=== PATIENT | male | born 1955 | race Caucasian/White ===

== ENCOUNTER 2019-04-10 11:52 | Emergency (ER) | payer MEDICAID ==
--- NOTE | 2019-04-10 12:21 | ED Physician Chart ---
ED Chief Complaint/HPI - Patient Information Date Seen:: 04/10/19 Time Seen:: 12:05 Chief Complaint:: G-tube replaced History of Present Illness:: Patient sent here for replacement of G-tube which came out. A 20-gauge Ibarra catheter was placed in the G-tube stoma. Allergies:: Allergies Allergy/AdvReac Type Severity Reaction Status Date / Time levaquin Allergy Unknown Uncoded 08/22/12 21:29 Review:: Transfer documents Reviewed ED Review of Systems - Review of Systems General/Constitutional: No fever, No chills, No weight loss, No weakness, No diaphoresis, No edema, No loss of appetite Skin: No skin lesions, No rash, No bruising Head: No headache, No light-headedness Eyes: No loss of vision, No pain, No diplopia ENT: No earache, No nasal drainage, No sore throat, No tinnitus Neck: No neck pain, No swelling, No thyromegaly, No stiffness, No mass noted Cardio Vascular: No chest pain, No palpitations, No PND, No orthopnea, No edema Pulmonary: No SOB, No cough, No sputum, No wheezing GI: No nausea, No vomiting, No diarrhea, No pain, No melena, No hematochezia, No constipation, No hematemesis G/U: No dysuria, No frequency, No hematuria Musculoskeletal: No bone or joint pain, No back pain, No muscle pain Endocrine: No polyuria, No polydipsia Psychiatric: No prior psych history, No depression, No anxiety, No suicidal ideation Hematopoietic: No bruising, No lymphadenopathy Allergic/Immuno: No urticaria, No angioedema Neurological: No syncope, No focal symptoms, No weakness, No paresthesia, No headache, No seizure, No dizziness, No confusion, No vertigo ED Past Medical History - Past Medical History Past Medical History: Other (profound mental retardation; palsy; seizures; cholelithiasis; Essick quadriplegia) Family History: Other (unavailable) Social History: Care Facility Surgical History: Pacemaker Psychiatricy History: Other (severe mental retardation) Family Medical History - Family Member Mother History Unknown: Yes ED Physical Exam - Physical Examination General/Constitutional: Awake Other Gen/Cons comments:: Spastic quadriplegia; nonverbal Head: Atraumatic Eyes: Lids, conjuctiva normal, PERRL Skin: Nl inspection ENMT: External ears, nose nl Neck: No JVD Cardio Vascular: No murmur, gallop, rubs GI: No tenderness/rebounding/guarding Other Extremities comments:: Extremities contractured Other Neuro/Psych comments:: Not applicable ED Labs/Radiology/EKG Results - Lab Results Results: Laboratory Results WBC 7.3 Th/cmm (4.8-10.8) 04/10/19 12:39 RBC 4.96 Mil/cmm (4.30-5.70) 04/10/19 12:39 Hgb 15.5 gm/dL (12-16) 04/10/19 12:39 Hct 47.5 % (41.0-60) 04/10/19 12:39 MCV 95.8 fl (80-99) 04/10/19 12:39 MCH 31.2 pg (26.0-30.0) H 04/10/19 12:39 MCHC Differential 32.6 pg (28.0-36.0) 04/10/19 12:39 RDW 12.0 % (11.5-20.0) 04/10/19 12:39 Plt Count 230 Th/cmm (150-400) 04/10/19 12:39 MPV 9.7 fl 04/10/19 12:39 Neutrophils % 49.9 % (40.0-80.0) 04/10/19 12:39 Lymphocytes % 31.5 % (20.0-50.0) 04/10/19 12:39 Monocytes % 11.2 % (2.0-10.0) H 04/10/19 12:39 Eosinophils % 7.2 % (0.0-5.0) H 04/10/19 12:39 Basophils % 0.2 % (0.0-2.0) 04/10/19 12:39 Laboratory Results WBC 7.3 Th/cmm (4.8-10.8) 04/10/19 12:39 RBC 4.96 Mil/cmm (4.30-5.70) 04/10/19 12:39 Hgb 15.5 gm/dL (12-16) 04/10/19 12:39 Hct 47.5 % (41.0-60) 04/10/19 12:39 MCV 95.8 fl (80-99) 04/10/19 12:39 MCH 31.2 pg (26.0-30.0) H 04/10/19 12:39 MCHC Differential 32.6 pg (28.0-36.0) 04/10/19 12:39 RDW 12.0 % (11.5-20.0) 04/10/19 12:39 Plt Count 230 Th/cmm (150-400) 04/10/19 12:39 MPV 9.7 fl 04/10/19 12:39 Neutrophils % 49.9 % (40.0-80.0) 04/10/19 12:39 Lymphocytes % 31.5 % (20.0-50.0) 04/10/19 12:39 Monocytes % 11.2 % (2.0-10.0) H 04/10/19 12:39 Eosinophils % 7.2 % (0.0-5.0) H 04/10/19 12:39 Basophils % 0.2 % (0.0-2.0) 04/10/19 12:39 Sodium 141 mEq/L (136-145) 04/10/19 12:39 Potassium 3.9 mEq/L (3.5-5.1) 04/10/19 12:39 Chloride 105 mEq/L (98-107) 04/10/19 12:39 Carbon Dioxide 27.9 mEq/L (21.0-31.0) 04/10/19 12:39 Anion Gap 12.0 (7.0-16.0) 04/10/19 12:39 BUN 19 mg/dL (7-25) 04/10/19 12:39 Creatinine 0.6 mg/dL (0.7-1.3) L 04/10/19 12:39 Est GFR ( Amer) > 60.0 ml/min (>90) 04/10/19 12:39 Est GFR (Non-Af Amer) > 60.0 ml/min 04/10/19 12:39 BUN/Creatinine Ratio 31.7 04/10/19 12:39 Glucose 91 mg/dL (70-105) 04/10/19 12:39 Calcium 9.9 mg/dL (8.6-10.3) 04/10/19 12:39 - Radiology Results Results: KUB after Gastrografin injection showed G-tube to be in GI tract. ED Assessment - Assessment General Assessment: The RN contacted the extended care facility where the patient resides and the alternate physician to Dr. Ivan Akhtar (who is not on staff) is Dr. Sheth. I spoke to Dr. Sheth and he agreed if basic labs are normal patient may return to his extended care facility. ED Septic Shock - . Is Septic Shock (SBP<90, OR Lactate>4 mmol\L) present?: No ED Reassessment (Disposition) - Reassessment Reassessment Condition:: Improved - Diagnosis Diagnosis:: G-tube replacement; spastic quadriplegia; severe mental retardation - Aftercare/Follow up Instructions Aftercare/Follow-Up Instructions:: Refer to Discharge Instructions - Patient Disposition Discharge/Transfer:: [facility] Condition at Disposition:: Stable, Improved
[2019-04-10] MEDS ORDERED: Diatrizoate Meglumine/Diatri 30 mL Sol ONE (12:25)
--- NOTE | 2019-04-10 12:59 | Diagnostic Imaging Report ---
Upper GI with Gastrografin HISTORY: G-tube confirmation COMPARISON: None FINDINGS: Industrial Chemist view demonstrates significant stool throughout the colon with massive distal fecal impaction. Gas-filled loops of bowel are noted. Multilevel spinal fixation hardware is noted. There is severe scoliosis. The second image demonstrates contrast opacification of the stomach and small bowel loops. IMPRESSION: Intraluminal confirmation of patient's percutaneous gastric feeding tube. Significant amount of stool with significant distal fecal impaction noted. This is likely due to severe constipation and ileus. Clinical correlation and follow-up is needed. Severe spinal scoliosis with postsurgical changes.
[2019-04-10 13:05] LABS: % BASOPHILS 0.2 % (0.0-2.0); % EOSINOPHILS 7.2 % (0.0-5.0); % LYMPHOCYTES 31.5 % (20.0-50.0); % MONOCYTES 11.2 % (2.0-10.0); % NEUTROPHILS 49.9 % (40.0-80.0); BUN - UREA NITROGEN 19 mg/dL (7-25); CALCIUM SERUM 9.9 mg/dL (8.6-10.3); CARBON DIOXIDE 27.9 mEq/L (21.0-31.0); CHLORIDE 105 mEq/L (98-107); CREATININE - SERUM 0.6 mg/dL (0.7-1.3); EOSINOPHILE ABSOLUTE 0.5 Th/cmm (0.1-0.4); GFR AFRICAN-AMERICAN > 60.0 ml/min (>90); GFR NON AFRICAN-AMERICAN > 60.0 ml/min; GLUCOSE 91 mg/dL (70-105); HEMATOCRIT 47.5 % (41.0-60); HEMOGLOBIN 15.5 gm/dL (12-16); LYMPHOCYTE ABSOLUTE 2.3 Th/cmm (1.5-3.0); MEAN CELL VOLUME 95.8 fl (80-99); MEAN CORPUSCULAR HEMOGLOBIN 31.2 pg (26.0-30.0); MEAN CORPUSCULAR HGB CONC 32.6 pg (28.0-36.0); MEAN PLATELET VOLUME 9.7 fl; MONOCYTE ABSOLUTE 0.8 Th/cmm (0.3-1.0); NEUTROPHILE ABSOLUTE 3.7 Th/cmm (1.8-8.0); PLATELET COUNT 230 Th/cmm (150-400); POTASSIUM SERUM 3.9 mEq/L (3.5-5.1); RED BLOOD COUNT 4.96 Mil/cmm (4.30-5.70); SODIUM SERUM 141 mEq/L (136-145); WHITE BLOOD COUNT 7.3 Th/cmm (4.8-10.8)
== END 2019-04-10 14:20 ==
LOC: ER 11:52
DX: G82.50 Quadriplegia, unspecified (principal); F72 Severe intellectual disabilities; Z43.1 Encounter for attention to gastrostomy; Z88.8 Allergy status to other drugs, medicaments and biological substances; Z95.1 Presence of aortocoronary bypass graft
CPT/HCPCS: 36415-UA; 80048-TC; 85025-TC; Z7610